=== PATIENT | female | born 1960 | race Caucasian/White ===

== ENCOUNTER 2019-08-19 14:56 | Outpatient (RCR) | payer OTHER ==
[~2019-08-19 14:56] MED LIST: ALEVE PO; METOPROLOL SUCC50 MG PO; Z.0.CELEXA20 MG PO; Z.0.TOPROL XL25 MG PO
== END 2019-08-20 ==
LOC: PT 14:56
PROVIDERS: ATTEND Specialist
DX: M70.61 Trochanteric bursitis, right hip (principal)

== ENCOUNTER 2019-09-09 16:00 | Outpatient (RCR) | payer OTHER | END 2019-09-19 | LOC: PT 16:00 | PROVIDERS: ATTEND Specialist | DX: M70.61 Trochanteric bursitis, right hip (principal); M62.81 Muscle weakness (generalized); R26.2 Difficulty in walking, not elsewhere classified | CPT/HCPCS: 97139 ==